=== PATIENT | female | born 1995 | race Caucasian/White ===

== ENCOUNTER 2018-02-10 09:22 | Emergency (ER) | payer OTHER ==
--- NOTE | 2018-02-10 10:33 | CT ---
EXAMINATION TYPE: CT brain wo con DATE OF EXAM: 02/10/2018 COMPARISON: 06/30/2013 HISTORY: headache CT DLP: 942 mGycm. Automated Exposure Control for Dose Reduction was Utilized. TECHNIQUE: CT scan of the head is performed without contrast. FINDINGS: There is no acute intracranial hemorrhage, mass effect, or midline shift identified. No s uspicious extra-axial fluid collection. The ventricles and sulci are within normal limits in size. The globes are intact and the visualized sinuses are clear. IMPRESSION: No acute intracranial hemorrhage, mass effect, or midline shift is seen.
--- NOTE | 2018-02-10 10:48 | XR ---
EXAMINATION TYPE: XR ribs LT w pa chest xray DATE OF EXAM: 02/10/2018 CLINICAL HISTORY: Chest pain/breast pain TECHNIQUE: Single frontal view of the chest is obtained. Frontal and oblique views of the left ribs w ere obtained. COMPARISON: 10/17/2015 FINDINGS: There is no focal air space opacity, pleural effusion, or pneumothorax seen. The cardiac silhouette size is within normal limits. The osseous structures are intact. There is a partially ca llused subacute appearing nondisplaced fracture of the lateral margin of rib 7 on the left. No additi onal rib fractures are seen. IMPRESSION: Subacute appearing partially callused left lateral rib 7 fracture. Otherwise no acute car diopulmonary pathology.
--- NOTE | 2018-02-10 11:13 | ED ---
Headache HPI - General Chief Complaint: Headache Stated Complaint: Rib Pain Time Seen by Provider: 02/10/18 09:52 Source: patient, RN notes reviewed Mode of arrival: ambulatory Limitations: no limitations - History of Present Illness Initial Comments: 22-year-old female presented emergency from for multiple complaints. Patient states she has severe tension headaches states that the headache seemed to be different yesterday so she felt that she needed to be seen today. Patient denies any blurred vision, double vision, focal weakness,vomiting diarrhea constipation. Patient states that she also had left rib pain and she correlated is from coughing from smoking marijuana. Patient states that this pain over one area of her rib. She states that she is nauseous and the pain otherwise has no associated symptoms. Denies any trauma. Denies any other complaints. - Related Data Home Medications Medication Instructions Recorded Confirmed Acetaminophen [Tylenol] 500 mg PO Q4-6H PRN 02/10/18 02/10/18 Previous Rx's Medication Instructions Recorded Ibuprofen [Motrin] 600 mg PO Q8HR PRN #30 tab 02/10/18 Allergies Allergy/AdvReac Type Severity Reaction Status Date / Time codeine AdvReac Rash/Hives Verified 02/10/18 09:45 Review of Systems ROS Statement: Those systems with pertinent positive or pertinent negative responses have been documented in the HPI. ROS Other: All systems not noted in ROS Statement are negative. Past Medical History Past Medical History: No Reported History History of Any Multi-Drug Resistant Organisms: None Reported Past Surgical History: No Surgical Hx Reported Past Psychological History: Anxiety Smoking Status: Current some day smoker Past Alcohol Use History: Occasional Past Drug Use History: Marijuana General Exam Limitations: no limitations General appearance: alert, in no apparent distress Head exam: Present: atraumatic, normocephalic, normal inspection Eye exam: Present: normal appearance, PERRL, EOMI. Absent: scleral icterus, conjunctival injection, periorbital swelling ENT exam: Present: normal exam, normal oropharynx, mucous membranes moist, TM's normal bilaterally, normal external ear exam Neck exam: Present: normal inspection, full ROM. Absent: tenderness, meningismus, lymphadenopathy Respiratory exam: Present: normal lung sounds bilaterally, chest wall tenderness (Tenderness over lateral anterior ribs in the left). Absent: respiratory distress, wheezes, rales, rhonchi, stridor Cardiovascular Exam: Present: regular rate, normal rhythm, normal heart sounds. Absent: systolic murmur, diastolic murmur, rubs, gallop, clicks GI/Abdominal exam: Present: soft, normal bowel sounds. Absent: distended, tenderness, guarding, rebound, rigid Neurological exam: Present: alert, oriented X3, CN II-XII intact, reflexes normal, other (Finger to nose intact bilaterally without over shooting). Absent : motor sensory deficit Psychiatric exam: Present: normal affect, normal mood Skin exam: Present: warm, dry, intact, normal color. Absent: rash Course Vital Signs 02/10/18 09:30 Temperature 98.2 F Pulse Rate 53 L Respiratory 15 Rate Blood Pressure 126/81 O2 Sat by Pulse 100 Oximetry Medical Decision Making - Medical Decision Making 22-year-old female presented emergency from for headache and left-sided rib pain. Patient is noted have a subacute fracture on the left seventh rib. CT of brain was unremarkable. Patient we discharged with ibuprofen return parameters were discussed. Disposition Clinical Impression: Frequent headaches, Rib fracture Disposition: HOME SELF-CARE Condition: Stable Instructions: Rib Fracture (ED) Additional Instructions: Please return to the Emergency Department if symptoms worsen or any other concerns. Prescriptions: Ibuprofen [Motrin] 600 mg PO Q8HR PRN #30 tab PRN Reason: Pain Is patient prescribed a controlled substance at d/c from ED?: No Referrals: Angelika Lugo MD [STAFF PHYSICIAN] - 1-2 days Time of Disposition: 11:13
[2018-02-10 11:23] VITALS: BP 123/79; PULSE 68; RESP 18; TEMP 99.7
== END 2018-02-10 11:23 | disposition home or self-care (01) ==
LOC: EC 09:22
DX: S22.32XA Fracture of one rib, left side, initial encounter for closed fracture (principal); R51 Headache; R11.0 Nausea; F12.229 Cannabis dependence with intoxication, unspecified; Z88.5 Allergy status to narcotic agent; X58.XXXA Exposure to other specified factors, initial encounter
CPT/HCPCS: 70450; 99285

== ENCOUNTER 2021-01-04 12:12 | Emergency (ER) | payer OTHER ==
[2021-01-04 12:30] VITALS: BP 101/73; PULSE 62; RESP 18; TEMP 97.8
[2021-01-04] MEDS ORDERED: NEOMYCIN-POLYMYXIN-HC (3.5-10,000-10 MG) OTIC DROPS 10 ML BTL RIGHT EAR STA (12:37)
--- NOTE | 2021-01-04 12:45 | ED ---
General Adult HPI - General Chief complaint: ENT Stated complaint: R side ear Time Seen by Provider: 01/04/21 12:31 Source: patient, RN notes reviewed Mode of arrival: ambulatory Limitations: no limitations - History of Present Illness Initial comments: Patient is a pleasant 25-year-old female presenting to the emergency Department with complaints of right ear pain. Symptoms have been present for the past several weeks to a month. Patient does have some drainage. Discomfort increases with movement of the ear and touch. Patient has noticed some d iscomfort and swelling below her jaw on the right. 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 No fevers. No loss of hearing. - Related Data Home Medications Medication Instructions Recorded Confirmed Acetaminophen [Tylenol] 500 mg PO Q4-6H PRN 02/10/18 02/10/18 Previous Rx's Medication Instructions Recorded Ibuprofen [Motrin] 600 mg PO Q8HR PRN #30 tab 02/10/18 Pqpcksii-Uuksasxnf-Ms Otic 4 drops RIGHT EAR TID #1 bottle 01/04/21 [Cortisporin Otic Soln] Allergies Allergy/AdvReac Type Severity Reaction Status Date / Time codeine AdvReac Rash/Hives Verified 01/04/21 12:30 Review of Systems ROS Statement: Those systems with pertinent positive or pertinent negative responses have been documented in the HPI. ROS Other: All systems not noted in ROS Statement are negative. Constitutional: Denies: fever Eyes: Denies: eye pain ENT: Reports: as per HPI, ear pain Respiratory: Denies: cough Cardiovascular: Denies: chest pain Endocrine: Denies: fatigue Gastrointestinal: Denies: abdominal pain Genitourinary: Denies: dysuria Musculoskeletal: Denies: back pain Skin: Denies: rash Neurological: Denies: weakness Past Medical History Past Medical History: No Reported History History of Any Multi-Drug Resistant Organisms: None Reported Past Surgical History: No Surgical Hx Reported Past Psychological History: Anxiety Smoking Status: Never smoker Past Alcohol Use History: Occasional Past Drug Use History: Marijuana General Exam Limitations: no limitations General appearance: alert, in no apparent distress Head exam: Present: normocephalic Eye exam: Present: normal appearance ENT exam: Present: normal oropharynx, other (Right external auditory canal with out erythema and swelling. Tympanic membrane appears normal.) Neck exam: Present: lymphadenopathy Neurological exam: Present: alert, CN II-XII intact Psychiatric exam: Present: normal affect, normal mood Skin exam: Present: normal color Course Vital Signs 01/04/21 12:27 Temperature 97.8 F Pulse Rate 62 Respiratory 18 Rate Blood Pressure 101/73 O2 Sat by Pulse 97 Oximetry Disposition Clinical Impression: Otitis externa Disposition: HOME SELF-CARE Condition: Stable Instructions (If sedation given, give patient instructions): Otitis Externa (ED) Additional Instructions: Use eardrops: 4 drops 3 times daily for the next 7-10 days. Avoid cleaning the ears. Return for increased pain, fever, worsening or changing symptoms or other concerns. Please follow-up with primary care physician in the next couple days for recheck. Prescriptions: Dwgndqju-Bxrshilca-Si Otic [Cortisporin Otic Soln] 4 drops RIGHT EAR TID #1 bottle Is patient prescribed a controlled substance at d/c from ED?: No Referrals: Jenny Lovett MD [REFERRING] - 1-2 days Time of Disposition: 12:44
== END 2021-01-04 13:02 | disposition home or self-care (01) ==
LOC: EC 12:12
DX: H60.91 Unspecified otitis externa, right ear (principal); Z88.5 Allergy status to narcotic agent
CPT/HCPCS: 99282

== ENCOUNTER 2021-02-08 11:47 | Emergency (ER) | payer OTHER ==
[2021-02-08 12:17] VITALS: BP 107/68; PULSE 58; RESP 16; TEMP 98.5
--- NOTE | 2021-02-08 12:42 | ED ---
ENT HPI - General Chief complaint: ENT Stated complaint: ear pain Time Seen by Provider: 02/08/21 12:23 Source: patient, RN notes reviewed Mode of arrival: ambulatory Limitations: no limitations - History of Present Illness Initial comments: 25-year-old female that presents to emergency department complaining of bilateral ear pain worse on the right. She notes she was seen several weeks ago and was given external ear drops for any potential otitis externa. She notes that she was informed to quit using Q-tips patient was otherwise a well- appearing 25-year-old female no apparent distress or pain. She denied any chest pain shortness of breath headache nausea vomiting diarrhea constipation fever fatigue chills. - Related Data Home Medications Medication Instructions Recorded Confirmed Acetaminophen [Tylenol] 500 mg PO Q4-6H PRN 02/10/18 02/10/18 Previous Rx's Medication Instructions Recorded Ibuprofen [Motrin] 600 mg PO Q8HR PRN #30 tab 02/10/18 Reyrizvd-Vajgtxksj-Xh Otic 4 drops RIGHT EAR TID #1 bottle 01/04/21 [Cortisporin Otic Soln] Amoxicillin 875 mg PO Q12HR #20 tablet 02/08/21 Allergies Allergy/AdvReac Type Severity Reaction Status Date / Time codeine AdvReac Rash/Hives Verified 02/08/21 12:15 Review of Systems ROS Statement: Those systems with pertinent positive or pertinent negative responses have been documented in the HPI. ROS Other: All systems not noted in ROS Statement are negative. Past Medical History Past Medical History: No Reported History History of Any Multi-Drug Resistant Organisms: None Reported Past Surgical History: No Surgical Hx Reported Past Psychological History: Anxiety Smoking Status: Never smoker Past Alcohol Use History: Occasional Past Drug Use History: Marijuana General Exam Limitations: no limitations General appearance: alert, in no apparent distress Head exam: Present: atraumatic, normocephalic, normal inspection Eye exam: Present: normal appearance, PERRL, EOMI. Absent: scleral icterus, conjunctival injection, periorbital swelling ENT exam: Present: normal exam, mucous membranes moist, TM's normal bilaterally Neck exam: Present: normal inspection. Absent: tenderness, meningismus, lymphadenopathy Respiratory exam: Present: normal lung sounds bilaterally. Absent: respiratory distress, wheezes, rales, rhonchi, stridor Cardiovascular Exam: Present: regular rate, normal rhythm, normal heart sounds. Absent: systolic murmur, diastolic murmur, rubs, gallop, clicks Extremities exam: Present: normal inspection, full ROM, normal capillary refill. Absent: tenderness, pedal edema, joint swelling, calf tenderness Neurological exam: Present: alert, oriented X3 Psychiatric exam: Present: normal affect, normal mood Skin exam: Present: warm, dry, intact, normal color. Absent: rash Course Vital Signs 02/08/21 12:14 Temperature 98.5 F Pulse Rate 58 L Respiratory 16 Rate Blood Pressure 107/68 O2 Sat by Pulse 100 Oximetry Medical Decision Making - Medical Decision Making 25 female bilateral ear pain and uses Q-tips regularly. On exam and external canals were erythematous and tender based off patient reaction to otoscope exam. Patient requesting antibiotic for internal ear infection. Patient is agreeable with discharge home. She was informed to quit using Q-tips as it can cause irritation swelling of rash. Case discussed with Dr. Goodman, patient can discharge home Disposition Clinical Impression: Otitis media, Irritation of ear Disposition: HOME SELF-CARE Condition: Stable Instructions (If sedation given, give patient instructions): Earache (ED) Additional Instructions: Please return to the Emergency Department if symptoms worsen or any other concerns. Follow-up with primary care 1 to days. Discontinue using Q-tips. Take antibiotics as prescribed. Prescriptions: Amoxicillin 875 mg PO Q12HR #20 tablet Is patient prescribed a controlled substance at d/c from ED?: No Referrals: None,Stated [Primary Care Provider] - 1-2 days Time of Disposition: 12:41
== END 2021-02-08 12:59 | disposition home or self-care (01) ==
LOC: EC 11:47
DX: H66.93 Otitis media, unspecified, bilateral (principal); Z88.5 Allergy status to narcotic agent
CPT/HCPCS: 99282

== ENCOUNTER 2024-03-22 08:25 | Emergency (ER) | payer SELFPAY ==
[2024-03-22] MEDS: IBUPROFEN 800 MG TAB PO STA (08:53)
--- NOTE | 2024-03-22 09:20 | ED ---
General Adult HPI - General Chief complaint: Extremity Injury, Lower Stated complaint: R leg pain Time Seen by Provider: 03/22/24 08:36 Source: patient, RN notes reviewed, old records reviewed Mode of arrival: ambulatory Limitations: no limitations - History of Present Illness Initial comments: Patient is a 28-year-old female presents emergency department complaining of right knee pain. A few weeks ago, patient injured her knee when she got stuck inside a chair and then fell over. 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 States it seems to be inside her knee and in the posterior aspect. Still able to bend it however it is painful. Presents for further evaluation. Never sought medical attention at that time. Patient is still able to ambulate. Original injury occurred multiple weeks ago. - Related Data Home Medications Medication Instructions Recorded Confirmed Acetaminophen [Tylenol] 500 mg PO Q4-6H PRN 02/10/18 02/10/18 Previous Rx's Medication Instructions Recorded Ibuprofen [Motrin] 600 mg PO Q8HR PRN #30 tab 02/10/18 Xmdyvebb-Dgzftcrui-Be Otic 4 drops RIGHT EAR TID #1 bottle 01/04/21 [Cortisporin Otic Soln] Amoxicillin 875 mg PO Q12HR #20 tablet 02/08/21 Allergies Allergy/AdvReac Type Severity Reaction Status Date / Time codeine AdvReac Rash/Hives Verified 03/22/24 08:26 Review of Systems ROS Statement: Those systems with pertinent positive or pertinent negative responses have been documented in the HPI. Review of Systems: CONST: Denies fever EYES: Denies blurry vision ENT: Denies nasal congestion C/V: Denies Chest pain RESP: Denies shortness of breath GI: Denies abdominal pain : Denies dysuria SKIN: Denies rash. MSK: Endorses right knee pain NEURO: Denies headache ROS Other: All systems not noted in ROS Statement are negative. Past Medical History Past Medical History: No Reported History History of Any Multi-Drug Resistant Organisms: None Reported Past Surgical History: No Surgical Hx Reported Past Psychological History: Anxiety Smoking Status: Never smoker Past Alcohol Use History: Rare Past Drug Use History: Marijuana General Exam - General Exam Comments Initial Comments: General: Appears in no acute distress. HEAD: Normal with no signs of head trauma. EYES: EOMI. ENT: Hearing grossly intact. RESPIRATORY: No respiratory distress. C/V: Regular rate and rhythm. ABD: Abdomen is nondistended. EXT: No obvious deformity. Somewhat reduced range of motion of the right knee secondary to pain. Able to hold full extension against gravity. Tenderness seems to be both on the medial and lateral knee joint. No lower extremity edema. Peripheral pulses 2+ intact throughout. Neurovascular intact throughout the right lower extremity. SKIN: No rashes or lesions observed on exposed skin. NEURO: Alert and oriented. Limitations: no limitations Course Vital Signs 03/22/24 08:26 Temperature 97.5 F L Pulse Rate 86 Respiratory 18 Rate Blood Pressure 120/71 O2 Sat by Pulse 97 Oximetry Medical Decision Making - Medical Decision Making Was pt. sent in by a medical professional or institution ([facility], [employer], urgent care, hospital, or long-term...) When possible be specific @ -No Did you speak to anyone other than the patient for history (EMS, parent, family, police, friend...)? What history was obtained from this source @ -No Did you review nursing and triage notes (agree or disagree)? Why? @ -I reviewed and agree with nursing and triage notes Were old charts reviewed (outside hosp., previous admission, EMS record, old EKG, old radiological studies, urgent care reports/EKG's, long-term records)? Report findings @ -No old charts were reviewed Differential Diagnosis (chest pain, altered mental status, abdominal pain women, abdominal pain men, vaginal bleeding, weakness, fever, dyspnea, syncope, headache, dizziness, GI bleed, back pain, seizure, CVA, palpatations, mental health, musculoskeletal)? @ -Differential Musculoskeletal Muscular strain, contusion, ligament sprain, fracture, arthritis, septic arthritis, bursitis, cellulitis, muscle spasm, nerve compression, DVT, arterial occlusion, herpes zoster, electrolyte abnormality, tumor.... This is not meant to be in all inclusive list EKG interpreted by me (3pts min.). @ -None done X-rays interpreted by me (1pt min.). @ -Right knee x-ray negative for any obvious acute injury. CT interpreted by me (1pt min.). @ -None done U/S interpreted by me (1pt. min.). @ -Ultrasound negative for DVT. Report addended by the radiologist after discussing the case on the phone with him as there initially was a mistake in the record. What testing was considered but not performed or refused? (CT, X-rays, U/S, labs)? Why? @ -None What meds were considered but not given or refused? Why? @ -None Did you discuss the management of the patient with other professionals (professionals i.e. Dr., PA, [employer], lab, RT, psych nurse, social services technician, wire lather, teacher, air control/anti air warfare officer, manager of case management)? Give summary @ -No Was smoking cessation discussed for >3mins.? @ -No Was critical care preformed (if so, how long)? @ -No Were there social determinants of health that impacted care today? How? (Homelessness, low income, unemployed, alcoholism, drug addiction, transportation, low edu. Level, literacy, decrease access to med. care, custodial, rehab)? @ -No Was there de-escalation of care discussed even if they declined (Discuss DNR or withdrawal of care, Hospice)? DNR status @ -No What co-morbidities impacted this encounter? (DM, HTN, Smoking, COPD, CAD, Cancer, CVA, ARF, Chemo, Hep., AIDS, mental health diagnosis, sleep apnea, morbid obesity)? @ -None Was patient admitted / discharged? Hospital course, mention meds given and route, prescriptions, significant lab abnormalities, going to OR and other pertinent info. @ -Based on the patient's presentation and physical exam, presents with multip le weeks of right knee pain following a fall and twisting motion of her right knee at work. Still able to ambulate but has pain. We will obtain ultrasound of the right lower extremity as well as x-ray of the right lower extremity at the knee. She was in agreement this plan. She will be given Motrin. Neurovascular intact throughout. Vital signs are within acceptable limits. Imaging unremarkable. Updated the patient. She will be given an Estrada wrap and instructed to follow-up with orthopedics if pain persist as she may require an MRI to evaluate for an internal derangement of the knee. She has been ambulating on it for multiple weeks and therefore I do not believe crutches are warranted at this time. She was in agreement this plan. I instructed the patient to follow up with their PCP in the next 1-3 days. I explained that the patient should return to the emergency department if they experience any worsening symptoms. Strict return precautions were discussed with the patient. The patient expressed understanding of these instructions. I answered all questions that the patient had. The patient was discharged home in good condition with their prescriptions and follow up information. Undiagnosed new problem with uncertain prognosis? @ -No Drug Therapy requiring intensive monitoring for toxicity (Heparin, Nitro, Insulin, Cardizem)? @ -No Were any procedures done? @ -No Diagnosis/symptom? @ -Right knee sprain Acute, or Chronic, or Acute on Chronic? @ -Acute Uncomplicated (without systemic symptoms) or Complicated (systemic symptoms)? @ -Uncomplicated Side effects of treatment? @ -None Exacerbation, Progression, or Severe Exacerbation] @ -No Poses a threat to life or bodily function? @ -Unlikely Disposition Clinical Impression: Right knee sprain Disposition: HOME SELF-CARE Condition: Good Instructions (If sedation given, give patient instructions): Knee Sprain (ED) Additional Instructions: Follow-up with orthopedic surgery as he may require an MRI for further evaluation treatment of your right knee. Return if worsening symptoms. Is patient prescribed a controlled substance at d/c from ED?: No Referrals: None,Stated [Primary Care Provider] - 1-2 days Preston Kerr DO [Doctor of Osteopathic Medicine] - 1-2 days Forms: Area PCPs Time of Disposition: 10:34
--- NOTE | 2024-03-22 09:53 | XR ---
EXAMINATION TYPE: XR knee complete RT DATE OF EXAM: 03/22/2024 9:10 AM COMPARISON: 02/13/2010 CLINICAL INDICATION: Female, 28 years old with history of pain; [facility] TECHNIQUE: XR knee complete RT 3 views submitted.. FINDINGS: No evidence of any acute osseous pathology, soft tissue swelling, or joint effusion is no sammie. IMPRESSION: No acute osseous pathology. [facility], , 03/22/2024 9:50 AM
--- NOTE | 2024-03-22 10:03 | US ---
EXAMINATION TYPE: US venous doppler duplex LE RT DATE OF EXAM: 03/22/2024 9:52 AM COMPARISON: NONE CLINICAL INDICATION: Female, 28 years old with history of pain; Injury 2 weeks ago still bruised and painful , TECHNIQUE: The lower extremity deep venous system is examined utilizing real time linear array sonog chandan with graded compression, color doppler sonography, and spectral doppler. SIDE PERFORMED: Right FINDINGS: VESSELS IMAGED: Common Femoral Vein Deep Femoral Vein Greater Saphenous Vein * Femoral Vein Popliteal Vein Small Saphenous Vein * Proximal Calf Veins (* superficial vessels) Right Leg: Positive for DVT, Color Doppler imaging shows patency of the vessels. Spectral waveforms are within normal limits. IMPRESSION: No ultrasound evidence for deep venous thrombosis. [facility], , 03/22/2024 10:01 AM
[2024-03-22 10:54] VITALS: BP 120/80; PULSE 73; RESP 16; TEMP 98
== END 2024-03-22 10:54 | disposition home or self-care (01) ==
LOC: EC 08:25
DX: S83.91XA Sprain of unspecified site of right knee, initial encounter (principal); Z88.5 Allergy status to narcotic agent; W07.XXXA Fall from chair, initial encounter
CPT/HCPCS: 99284

== ENCOUNTER 2024-10-18 21:12 | Emergency (ER) | payer OTHER ==
[2024-10-18 21:22] VITALS: BP 123/83; PULSE 81; RESP 17; TEMP 99.2
--- NOTE | 2024-10-18 21:46 | ED ---
General Adult HPI - General Chief complaint: Extremity Injury, Lower Stated complaint: R Braga Injury Source: patient, RN notes reviewed, old records reviewed Mode of arrival: ambulatory Limitations: no limitations - History of Present Illness Initial comments: 28-year-old female with injury to the right braga which prior. Patient has had pain with extension of the knee and weightbearing since the injury. Patient states she hit it on the corner of a box. She had an area of bruising at the site of injury. No calf pain. No chest pain or difficulty breathing. No fever. - Related Data Home Medications Medication Instructions Recorded Confirmed Acetaminophen [Tylenol] 500 mg PO Q4-6H PRN 02/10/18 02/10/18 Previous Rx's Medication Instructions Recorded Ibuprofen [Motrin] 600 mg PO Q8HR PRN #30 tab 02/10/18 Hrtyytqi-Oexsyzlzd-Fe Otic 4 drops RIGHT EAR TID #1 bottle 01/04/21 [Cortisporin Otic Soln] Amoxicillin 875 mg PO Q12HR #20 tablet 02/08/21 Allergies Allergy/AdvReac Type Severity Reaction Status Date / Time codeine AdvReac Rash/Hives Verified 10/18/24 21:21 Review of Systems ROS Statement: Those systems with pertinent positive or pertinent negative responses have been documented in the HPI. ROS Other: All systems not noted in ROS Statement are negative. Past Medical History Past Medical History: No Reported History History of Any Multi-Drug Resistant Organisms: None Reported Past Surgical History: No Surgical Hx Reported Past Psychological History: Anxiety Smoking Status: Never smoker Past Alcohol Use History: Rare Past Drug Use History: Marijuana General Exam Limitations: no limitations General appearance: alert, in no apparent distress Head exam: Present: atraumatic, normocephalic Eye exam: Present: normal appearance. Absent: PERRL ENT exam: Present: normal exam Neck exam: Present: normal inspection. Absent: tenderness, meningismus Respiratory exam: Present: normal lung sounds bilaterally. Absent: respiratory distress, wheezes Cardiovascular Exam: Present: regular rate, normal rhythm GI/Abdominal exam: Present: soft. Absent: distended, tenderness, guarding Extremities exam: Present: tenderness (Ecchymosis and tenderness over the anterior proximal braga) Neurological exam: Present: alert, oriented X3 Psychiatric exam: Present: normal affect, normal mood Skin exam: Present: warm, dry. Absent: cyanosis, diaphoretic Course Vital Signs 06/12/25 21:19 Temperature 99.2 F Pulse Rate 81 Respiratory 17 Rate Blood Pressure 123/83 O2 Sat by Pulse 98 Oximetry Medical Decision Making - Medical Decision Making Was pt. sent in by a medical professional or institution ([facility], [employer], urgent care, hospital, or [facility]...) When possible be specific @ -No Did you speak to anyone other than the patient for history (EMS, parent, family, police, friend...)? What history was obtained from this source @ -No Did you review nursing and triage notes (agree or disagree)? Why? @ -I reviewed and agree with nursing and triage notes Were old charts reviewed (outside hosp., previous admission, EMS record, old EKG, old radiological studies, urgent care reports/EKG's, [facility] records)? Report findings @ -No old charts were reviewed Skeletal EKG interpreted by me (3pts min.). @ -As above X-rays interpreted by me (1pt min.). @X-ray of the right tibia and fibula is negative for fracture or dislocation CT interpreted by me (1pt min.). @ -None done U/S interpreted by me (1pt. min.). @ -None done What testing was considered but not performed or refused? (CT, X-rays, U/S, labs)? Why? @ -None What meds were considered but not given or refused? Why? @ -None Did you discuss the management of the patient with other professionals (professionals i.e. [facility], [employer], lab, RT, psych nurse, social work professor, supervisor ticket sales, teacher, certification officer, comp field case manager)? Give summary @ -No Was smoking cessation discussed for >3mins.? @ -No Was critical care preformed (if so, how long)? @ -No Were there social determinants of health that impacted care today? How? (Homelessness, low income, unemployed, alcoholism, drug addiction, transportation, low edu. Level, literacy, decrease access to med. care, senior care, rehab)? @ -No Was there de-escalation of care discussed even if they declined (Discuss DNR or withdrawal of care, Hospice)? DNR status @ -No What co-morbidities impacted this encounter? (DM, HTN, Smoking, COPD, CAD, Cancer, CVA, ARF, Chemo, Hep., AIDS, mental health diagnosis, sleep apnea, morbid obesity)? @ -None Was patient admitted / discharged? Hospital course, mention meds given and route, prescriptions, significant lab abnormalities, going to OR and other pertinent info. @ -28-year-old female with right braga pain just below the knee after injury which occurred several days prior. X-rays are obtained which are negative for fracture. Patient will ice the area, take Tylenol Motrin for pain provider Undiagnosed new problem with uncertain prognosis? @ -No Drug Therapy requiring intensive monitoring for toxicity (Heparin, Nitro, Insulin, Cardizem)? @ -No Were any procedures done? @ -No Diagnosis/symptom? @ -Contusion Acute, or Chronic, or Acute on Chronic? @ -acute Uncomplicated (without systemic symptoms) or Complicated (systemic symptoms)? @ -Default Side effects of treatment? @ -No Exacerbation, Progression, or Severe Exacerbation? @ -No Poses a threat to life or bodily function? How? (Chest pain, [place], [place], pneumonia, PE, COPD, DKA, ARF, appy, cholecystitis, CVA, Diverticulitis, Homicidal, Suicidal, threat to staff... and all critical care pts) @ -No Disposition Clinical Impression: Contusion of lower leg Disposition: HOME SELF-CARE Condition: Fair Instructions (If sedation given, give patient instructions): Contusion in Adults (ED) Is patient prescribed a controlled substance at d/c from ED?: No Referrals: None,Stated [Primary Care Provider] - 1-2 days Time of Disposition: 21:59
--- NOTE | 2024-10-18 22:03 | XR ---
EXAMINATION TYPE: XR tibia fibula RT DATE OF EXAM: 10/18/2024 9:51 PM COMPARISON: None CLINICAL INDICATION: Female, 28 years old with history of pain after fall; PHH, pain TECHNIQUE: XR tibia fibula RT; examined in AP and lateral projections. FINDINGS: No evidence of any acute osseous pathology, joint dislocation, or soft tissue swelling is n oted. IMPRESSION: No evidence of acute fracture. [facility], , 10/18/2024 10:01 PM
== END 2024-10-18 22:35 | disposition home or self-care (01) ==
LOC: EC 21:12
DX: S80.12XA Contusion of left lower leg, initial encounter (principal); Z88.5 Allergy status to narcotic agent; W22.8XXA Striking against or struck by other objects, initial encounter
CPT/HCPCS: 99283

== ENCOUNTER → 2024-10-31 | Outpatient (CLI) | payer OTHER ==
--- NOTE | 2024-10-31 16:31 | CT ---
EXAMINATION TYPE: CT abdomen pelvis wo/w con CT DLP: 535.1 mGycm, Automated exposure control for dose reduction was used. DATE OF EXAM: 10/31/2024 3:19 PM COMPARISON: Non- CLINICAL INDICATION:Female, 29 years old with history of R14.0 ABDOMINAL DISTENSION (GASEOUS); abdomi nal pain, bloating, and cramping TECHNIQUE: Standard CT of the abdomen and pelvis before and after the administration of 100 cc of I sovue 300 IV contrast material and oral contrast. Coronal and sagittal reformats were performed. FINDINGS: LOWER CHEST: Unremarkable ABDOMEN LIVER: Unremarkable GALLBLADDER AND BILE DUCTS: Unremarkable. PANCREAS: Unremarkable. SPLEEN: Unremarkable. ADRENAL GLANDS: Unremarkable. KIDNEYS AND URETERS: No evidence of hydronephrosis or renal calculus. The kidneys enhance symmetrical ly. Contrast is demonstrated within both collecting systems and proximal ureters on the delayed phase . PELVIS BLADDER: Unremarkable REPRODUCTIVE: Tubular gas-filled structure within the vagina likely representing a tampon. Additional heterogenous gas filled debris within the vagina. Anteverted uterus. ABDOMEN & PELVIS STOMACH AND BOWEL: Stomach and duodenum are unremarkable. Enteric contrast reaches the distal small b owel. No focal bowel wall thickening or surrounding inflammatory changes. No evidence of bowel obstru ction. PERITONEUM: No evidence of pneumoperitoneum or free fluid. VASCULATURE: No evidence of aortic aneurysm. MUSCULOSKELETAL: No acute osseous abnormalities LYMPH NODES: No evidence for lymphadenopathy. SOFT TISSUE/ABDOMINAL WALL: Unremarkable IMPRESSION: No CT evidence for acute abdominal/pelvic process. [facility], , 10/31/2024 4:29 PM
== END | disposition home or self-care (01) ==
LOC: RADCTMAIN 13:05
PROVIDERS: ATTEND Internal Medicine
DX: R14.0 Abdominal distension (gaseous) (principal); R10.9 Unspecified abdominal pain
CPT/HCPCS: 74178; Q9967

== ENCOUNTER → 2024-11-15 | Outpatient (CLI) | payer OTHER ==
[2024-11-15 20:04] LABS: Basophils # (A) 0.07 X 10*3/uL (0.00-0.10); Basophils % (A) 0.9 %; Eosinophils # (A) 0.24 X 10*3/uL (0.04-0.35); Eosinophils % (A) 3.0 %; HCT 39.9 % (37.2-46.3); HGB 13.2 g/dL (12.0-15.0); Immature Grans, Automated 0.30 %; Lymphocytes # (A) 2.67 X 10*3/uL (0.90-5.00); Lymphocytes % (A) 33.5 %; MCH 30.7 pg (27.0-32.0); MCHC 33.1 g/dL (32.0-37.0); MCV 92.8 FL (80.0-97.0); Monocytes # (A) 0.57 X 10*3/uL (0.20-1.00); Monocytes % (A) 7.2 %; NRBC Per 100 WBC 0 X 10*3/uL (0.00-0.01); Neutrophils # (A) 4.40 X 10*3/uL (1.80-7.70); Neutrophils % (A) 55.1 %; Platelet Count 280 X 10*3/uL (140-440); RBC 4.30 X 10*6/uL (4.10-5.20); RDW 13.1 % (11.5-14.5); WBC 7.97 X 10*3/uL (4.50-10.00)
[2024-11-15 21:14] LABS: HSV I IgG Interp Positive (Negative); HSV II IgG Interp Positive (Negative)
[2024-11-15 21:16] LABS: HIV 2 AB Non-Reactive (Non-Reactive); HIV AB P24 Non-Reactive (Non-Reactive); HIV P24 AG Non-Reactive (Non-Reactive)
[2024-11-15 22:18] LABS: ALT 15 U/L (8-44); AST 20 U/L (13-35); Albumin 4.9 g/dL (3.8-4.9); Albumin/Globulin Ratio 2.04 Ratio (1.60-3.17); Alkaline Phosphatase 48 U/L (41-126); Anion Gap 15.20 mmol/L (4.00-12.00); BUN/Creat Ratio 12.75 Ratio (12.00-20.00); Blood Urea Nitrogen 10.2 mg/dL (9.0-27.0); Calcium 9.8 mg/dL (8.7-10.3); Carbon Dioxide 22.8 mmol/L (21.6-31.8); Chloride 107 mmol/L (96-109); Cholesterol 172.00 mg/dL (0.00-200.00); Ferritin 41.1 ng/mL (10.0-291.0); Globulin 2.4 g/dL (1.6-3.3); Glucose 73 mg/dL (70-110); HDL Cholesterol 51.40 mg/dL (40.00-60.00); Iron 84 UG/DL (50-170); LDL Cholesterol,Calculated 100.6 mg/dL (0.0-131.0); Potassium 4.7 mmol/L (3.5-5.5); Sodium 145 mmol/L (135-145); Total Iron Binding Capacity 365 UG/DL (228-460); Total Protein 7.3 g/dL (6.2-8.2); Triglycerides 100.00 mg/dL (0.00-149.00); VLDL Calculation 20.00 mg/dL (5.00-40.00); Vitamin B12 466.0 pg/mL (200.0-944.0)
[2024-11-16 12:53] LABS: C. trachomatis,PCR Negative (Negative); N. gonorrhoeae,PCR Negative (Negative)
== END | disposition home or self-care (01) ==
LOC: LABWHC1 12:40
PROVIDERS: ATTEND Family Medicine
DX: Z00.00 Encounter for general adult medical examination without abnormal findings (principal); Z12.4 Encounter for screening for malignant neoplasm of cervix; N89.8 Other specified noninflammatory disorders of vagina; Z86.2 Personal history of diseases of the blood and blood-forming organs and certain disorders involving the immune mechanism
CPT/HCPCS: 36415; 80053; 80061; 82306; 82607; 82728; 82746; 83540; 83550; 84443; 84466; 85025; 86695; 86696; 86780; 87390; 87491; 87591